=== PATIENT | male | born 1945 | race Caucasian/White ===

== ENCOUNTER 2021-12-11 06:27 | Day surgery (SDC) | payer MEDICARE ==
[2021-12-09 14:19] LABS: BASOPHILS % (AUTO) 0.8 % (0.0-5.0); EOSINOPHILS % (AUTO) 3.6 % (0.0-8.0); LYMPHOCYTES % (AUTO) 20.5 % (21.0-51.0); MEAN CORPUSCULAR HEMOGLOBIN 29.7 pg (27.0-33.0); MEAN CORPUSCULAR VOLUME 92.8 fL (79-99); MONOCYTES % (AUTO) 12.3 % (3.0-13.0); NEUTROPHILS % (AUTO) 62.4 % (40.0-77.0); PLATELET COUNT (AUTO) 226 K/uL (130-400); RED BLOOD CELL COUNT(AUTO) 4.85 MIL/uL (4.50-6.20); RED CELL DISTRIBUTION WIDTH 11.9 % (11.0-15.5); WHITE BLOOD COUNT (AUTO) 4.7 K/uL (4.8-10.8)
[2021-12-09 14:28] LABS: CREATININE 1.1 mg/dL (0.5-1.5); POTASSIUM 4.9 mmol/L (3.5-5.1)
[2021-12-10 09:40] VITALS: BP 146/81
[~2021-12-11] VITALS: Ht 180.3 cm; Wt 72.9 kg
[2021-12-11] VITALS (15 sets, daily range): BP systolic 112–141; BP diastolic 63–90
[~2021-12-11 06:27] MED LIST: CYAN-35 PO; FINA5TAB41 PO; MELO-106 PO; TAMS-1 PO
[2021-12-11] MEDS ORDERED: LACTATED RINGERS 1000ML 1,000 ML IV ONE (06:38)
[2021-12-11] MEDS ORDERED: CEFTRIAXONE 1G VIAL ONE (06:38)
[2021-12-11] MEDS ORDERED: MIDAZOLAM HCL 1 MG/ML 2ML VIAL ONE (07:15)
[2021-12-11] MEDS ORDERED: ROCURONIUM 10MG/1ML SYR 10 MG/ML ML ONE (07:16)
[2021-12-11] MEDS ORDERED: PROPOFOL 10 MG/ML 20ML VIAL IV ONE (07:16)
[2021-12-11] MEDS ORDERED: GLYCOPYRROLATE 1 MG/5 ML SYRINGE ONE (07:16)
[2021-12-11] MEDS ORDERED: FENTANYL CITRATE PF 50 MCG/1 ML 2ML VIAL ONE (07:16)
[2021-12-11] MEDS ORDERED: LIDOCAINE PF 100MG/5ML (2%) SYRINGE 5ML ONE (07:19)
[2021-12-11] MEDS ORDERED: PHENYLEPHRINE HCL 10 MG/ML 1ML VIAL IV ONE (07:19)
[2021-12-11] MEDS ORDERED: FAMOTIDINE 20MG VIAL IV ONE (07:30)
[2021-12-11] MEDS ORDERED: CEFTRIAXONE 1G VIAL IVP ONE (08:00)
[2021-12-11] MEDS ORDERED: SUGAMMADEX SODIUM 200 MG/2 ML VIAL IV ONE (08:06)
[2021-12-11] MEDS ORDERED: ONDANSETRON 4MG INJ ONE (08:55)
[2021-12-11] MEDS ORDERED: NEOSTIGMINE 5MG/5ML SYR IV ONE (09:23)
[2021-12-11] MEDS ORDERED: OPIUM/BELLADONNA ALKALOIDS 1 EACH SUPP.RECT RC ONE (09:23)
[2021-12-11] MEDS ORDERED: PHENAZOPYRIDINE HCL 200 MG TABLET ONE (10:29)
== END 2021-12-11 11:10 | disposition home or self-care (01) ==
LOC: DAH 06:27
PROVIDERS: ATTEND Urology
DX: N40.1 Benign prostatic hyperplasia with lower urinary tract symptoms (principal); Z20.822 Contact with and (suspected) exposure to COVID-19; R35.1 Nocturia; N32.89 Other specified disorders of bladder; Z79.899 Other long term (current) drug therapy; Z87.442 Personal history of urinary calculi; Z90.89 Acquired absence of other organs; Z98.890 Other specified postprocedural states
CPT/HCPCS: 36415; 52648; 80048; 85025; 87635; A4215; A4221; A4222; A4223; A4340; A4354; A4358; A4600; A4663; A6260; C9803; J0696; J2001; J2250; J2370; J2405; J2704; J2710; J3010; J3490 ×2; J7120 ×2